=== PATIENT | female | born 1985 | race African-American/Black ===

== ENCOUNTER 2016-06-06 23:15 | Emergency (ER) | payer MEDICAID ==
[~2016-06-06] VITALS: Ht 160 cm; Wt 56.7 kg
[2016-06-06] MEDS ORDERED: PRENATAL VITAM1 EACH PO (23:24)
--- NOTE | 2016-06-07 00:18 | Emergency Room Report ---
History of Present Illness General Chief Complaint: Skin Rash/Abscess Source: Patient Present Illness HPI Is a 31-year-old female right-hand dominant. She presents with swelling to her right index finger. She had a hangnail and bit last week. He started getting infected. She went to [facility] 2 days ago and was placed on antibiotics. Now is more swollen. Complaining of throbbing pain. No fever or chills but no nausea no vomiting. Any movement or palpation made it worse. Allergies: Coded Allergies: No Known Allergies (Unverified , 06/06/16) Patient History Past Medical History: see triage record, old chart reviewed Past Surgical History: none Pertinent Family History: none Social History: Denies: smoking Now: No Immunizations: other Reviewed Nursing Documentation: PMH: Agreed, PSxH: Agreed Nursing Documentation-PM Past Medical History: No Stated History Review of Systems Eye: Denies: blurred vision, eye pain ENT: Denies: ear pain, nose congestion, throat swelling Respiratory: Denies: cough, shortness of breath Cardiovascular: Denies: chest pain, palpitations Gastrointestinal: Denies: abdominal pain, diarrhea, nausea, vomiting Musculoskeletal: Denies: back pain, joint pain Skin: Denies: rash Neurological: Denies: headache, numbness Endocrine: Denies: increased thirst, increased urine Hematologic/Lymphatic: Denies: easy bruising All Other Systems: negative except mentioned in HPI Physical Exam Vital Signs Date Time Temp Pulse Resp B/P Pulse Ox O2 Delivery O2 Flow Rate FiO2 06/06/16 23:17 97.2 97 16 99/68 100 Room Air vitals normal Sp02 EP Interpretation: reviewed, normal General Appearance: well appearing, no apparent distress, alert Head: normocephalic, atraumatic Eyes: bilateral eye EOMI, bilateral eye PERRL ENT: hearing grossly normal, normal pharynx Neck: full range of motion, supple, no meningismus Respiratory: chest non-tender, lungs clear, normal breath sounds Cardiovascular #1: regular rate, rhythm, no murmur Gastrointestinal: normal bowel sounds, non tender, no mass, no organomegaly, no bruit, non-distended Musculoskeletal: back normal, gait/station normal, normal range of motion, other - Right index finger: There is a paronychia of the radial aspect of the nail. No felon. Sensation normal. Neurologic: alert, oriented x3 Psychiatric: mood/affect normal Skin: warm/dry Procedures Incision and Drainage Incision and Drainage : Consent: Verbal Site: Right index finger Blade Size: 11 I & D Procedure: betadine prep Wound Location: upper extremity Patient Tolerated: Well Complications: None Progress after soaking finger in a Betadine, I used an 11 blade scalpel and run the nail. There was moderate amount of purulent discharge expressed. Wound was irrigated. Patient tolerated procedure w/o problem. Medical Decision Making Diagnostic Impression: Primary Impression: Paronychia of right index finger ER Course Patient presents with a paronychia of the right index finger. No felon. We'll discharge home after I&D. Continue antibiotics. Last Vital Signs Date Time Temp Pulse Resp B/P Pulse Ox O2 Delivery O2 Flow Rate FiO2 06/06/16 23:17 97.2 97 16 99/68 100 Room Air Status: improved Disposition: HOME, SELF-CARE Condition: Stable Referrals: NON PHYSICIAN (PCP) Additional Instructions: Followup your Dr. in 7 days. Continue with your antibiotics. Continue soaking finger. Return if worse. POLO BURNHAM M.D. Jun 07, 2016 00:18
[2016-06-07 00:20] VITALS: BP 99/68
[2016-06-07 00:25] VITALS: BP 99/68
== END 2016-06-07 00:25 | disposition home or self-care (01) ==
LOC: EMR 23:46
DX: L03.011 Cellulitis of right finger (principal)
CPT/HCPCS: 10060